=== PATIENT | male | born 1955 | race Caucasian/White ===

== ENCOUNTER 2020-09-05 10:00 | Emergency (ER) | payer MEDICARE ==
[2020-09-05] MEDS ORDERED: NORCO 5-325 TA1 EACH PO (14:01)
[2020-09-06] MEDS ORDERED: PRILOSEC20 MG PO (13:26)
[2020-09-06] MEDS ORDERED: LISINOPRIL-HCT1 EAC1 PO (13:26)
[2020-09-10] MEDS ORDERED: PERCOCET 5-3251 EACH PO (10:53)
[2020-09-10] MEDS ORDERED: ASPIRIN325 MG PO (15:13)
== END 2020-09-05 14:25 | disposition home or self-care (01) ==
LOC: FER 10:00
DX: S92.351A Displaced fracture of fifth metatarsal bone, right foot, initial encounter for closed fracture (principal); M25.561 Pain in right knee; M79.651 Pain in right thigh; I10 Essential (primary) hypertension; K21.9 Gastro-esophageal reflux disease without esophagitis; Z88.1 Allergy status to other antibiotic agents; Z79.899 Other long term (current) drug therapy; W10.9XXA Fall (on) (from) unspecified stairs and steps, initial encounter; Y92.009 Unspecified place in unspecified non-institutional (private) residence as the place of occurrence of the external cause
CPT/HCPCS: 73560; 73620

== ENCOUNTER → 2020-09-10 | Day surgery (SDC) | payer MEDICARE ==
[~2020-09-10] MED LIST: ASPIRIN325 MG PO; LISINOPRIL-HCT1 EAC1 PO; NORCO 5-325 TA1 EACH PO; PERCOCET 5-3251 EACH PO; PRILOSEC20 MG PO
[2020-09-10 11:27] LABS: HCT 40.2 % (42.0-52.0); HGB 14.5 g/dl (13.2-18.0); MCH 33.6 pg (25.0-31.0); MCHC 36.1 g/dL (32.0-36.0); MCV 93.1 fL (78.0-100.0); MPV 9.7 fL (6.0-9.5); RBC 4.32 M/uL (4.70-6.00); RDW 11.7 % (11.5-14.0); WBC 7.9 K/uL (4.0-10.5)
[2020-09-10 12:19] LABS: ALBUMIN 3.6 g/dL (3.4-5.0); BILIRUBIN - TOTAL 0.6 mg/dL (0.2-1.0); BUN/CREAT RATIO (CALC) 23.7 RATIO; CREATININE 0.76 mg/dL (0.67-1.17); GLOBULIN (CALCULATION) 3.7 g/dL; POTASSIUM 4.1 mmol/L (3.5-5.1); TOTAL PROTEIN 7.3 g/dL (6.4-8.2)
== END | disposition home or self-care (01) ==
LOC: FAS 10:15
PROVIDERS: Orthopaedic Surgery
DX: S76.111A Strain of right quadriceps muscle, fascia and tendon, initial encounter (principal); I10 Essential (primary) hypertension; K21.9 Gastro-esophageal reflux disease without esophagitis; R42 Dizziness and giddiness; Z88.1 Allergy status to other antibiotic agents; Z20.822 Contact with and (suspected) exposure to COVID-19; Z79.899 Other long term (current) drug therapy; W18.30XA Fall on same level, unspecified, initial encounter
CPT/HCPCS: 36415; 71045; 80053; 93005; J0690; J1100; J1170; J1885; J2250; J2405; J2704; J2795; J7120